=== PATIENT | male | born 1975 | race Caucasian/White ===

== ENCOUNTER 2018-02-10 12:05 | Emergency (ER) | payer OTHER, BC ==
[~2018-02-10] VITALS: Ht 182.8 cm; Wt 136.1 kg
[~2018-02-10 12:05] MED LIST: AMOXICILLIN500 MG PO; ANUSOL-HC25 MG RC; CERUMENEX OT; CLARITIN-D 10 M1 T21 PO; HYDROCODONE BIT1 T11 PO; VICODIN ES 7501 TAB PO
[2018-02-10] MEDS ORDERED: KEFLEX500 M1 PO (12:32)
== END 2018-02-10 12:57 | disposition home or self-care (01) ==
LOC: ED 12:05
DX: S51.812A Laceration without foreign body of left forearm, initial encounter (principal); Z79.899 Other long term (current) drug therapy; W45.8XXA Other foreign body or object entering through skin, initial encounter; Y93.89 Activity, other specified; Y92.89 Other specified places as the place of occurrence of the external cause; Y99.0 Civilian activity done for income or pay

== ENCOUNTER → 2020-06-27 | Outpatient (CLI) | payer BC, OTHER ==
[~2020-06-27] MED LIST changes: +KEFLEX500 M1 PO
== END | disposition home or self-care (01) ==
LOC: COVID19 02:45
PROVIDERS: ATTEND Family Medicine
DX: Z20.828 Contact with and (suspected) exposure to other viral communicable diseases (principal)

== ENCOUNTER → 2021-09-26 | Outpatient (CLI) | payer BC, OTHER | LOC: COVID19 15:17 | PROVIDERS: ATTEND Internal Medicine | DX: Z11.52 Encounter for screening for COVID-19 (principal); Z20.822 Contact with and (suspected) exposure to COVID-19 ==